=== PATIENT | male | born 1975 | race African-American/Black ===

== ENCOUNTER 2018-12-23 19:36 | Emergency (ER) | payer MEDICAID ==
[~2018-12-23] VITALS: Ht 180.3 cm; Wt 82.0 kg
[2018-12-23] MEDS ORDERED: IBUPROFEN 600MG TABLET PO ONE (22:15)
[2018-12-23 22:44] LABS: CLARITY URINE CLEAR (CLEAR); COLOR URINE YELLOW (YELLOW); KETONES URINE TRACE (NEGATIVE); LEUKOCYTE ESTERASE URINE 2+ (NEGATIVE); NITRITE URINE POSITIVE (NEGATIVE); OCCULT BLOOD URINE NEGATIVE (NEGATIVE); PH URINE 5.5 (4.5-8.0); PROTEIN URINE 1+ (NEGATIVE); SPECIFIC GRAVITY URINE 1.027 (1.005-1.030)
[2018-12-23] MEDS ORDERED: CEFTRIAXONE SODIUM 250 MG/VIAL IM ONE (23:00)
[2018-12-23] MEDS ORDERED: AZITHROMYCIN 500 MG TABLET PO ONE (23:00)
[2018-12-23] MEDS ORDERED: LIDOCAINE HCL 1% 20ML VIAL (Pyxis) INJ INFIL ONE (23:15)
[2018-12-23 23:55] VITALS: BP 127/85
== END 2018-12-23 23:59 | disposition home or self-care (01) ==
LOC: ER 23:44
DX: N39.0 Urinary tract infection, site not specified (principal); M54.6 Pain in thoracic spine; Z72.51 High risk heterosexual behavior; R03.0 Elevated blood-pressure reading, without diagnosis of hypertension; F17.210 Nicotine dependence, cigarettes, uncomplicated; F12.90 Cannabis use, unspecified, uncomplicated
CPT/HCPCS: 71045; 81003; 87077; 87086; 87186; 96372; 99284; J0696; J3490